=== PATIENT | female | born 1960 | race Caucasian/White ===

== ENCOUNTER 2024-05-01 05:47 | Observation (INO) ==
--- NOTE | 2024-04-04 13:03 | PAT Medication Instructions ---
Medication Instructions Date of Service April 04, 2024 Home Medications Medical Marijuana 1 applic PO HS PRN [place] 1,000 mg PO QAM Probiotic 1 cap PO DAILY Weight Management Gummy 400 mg PO DAILY cjjzsnd-oovvsnbjnivzs-odthnpdp 250 mg-250 mg-65 mg tablet (Excedrin Migraine) 2 tab PO Q6H PRN baclofen 5 mg tablet 5 mg PO BID PRN biotin 10,000 mcg capsule 10,000 mcg PO DAILY calcium 600 mg (as carbonate)-vitamin D3 10 mcg (400 unit) tablet (Calcium 600 + D(3)) 2 tab PO QAM coenzyme Q10 200 mg capsule 200 mg PO DAILY duloxetine 30 mg capsule,delayed release 30 mg PO QAM duloxetine 60 mg capsule,delayed release 60 mg PO HS garlic 1,000 mg capsule 1,000 mg PO DAILY glucosamine HCl 1,500 mg tablet 3,000 mg PO DAILY hydrochlorothiazide 12.5 mg tablet 12.5 mg PO QAM scnkvnok-kqba-pmdt 8 mg-folic 400 mcg-K 50 mcg-lutein 300 mcg tablet (Centrum Silver Women) 1 tab PO DAILY omega-3 fatty acids 500 mg PO DAILY topiramate 50 mg tablet 50 mg PO BID ASK your surgeon for instructions vvytfjd-sdexjbkvpawrt-eakfbzuw 250 mg-250 mg-65 mg tablet (Excedrin Migraine) 2 tab PO Q6H PRN STOP taking 2 weeks before surgery (or as soon as possible if surgery is within 2 weeks) [place] 1,000 mg PO QAM Weight Management Gummy 400 mg PO DAILY biotin 10,000 mcg capsule 10,000 mcg PO DAILY coenzyme Q10 200 mg capsule 200 mg PO DAILY garlic 1,000 mg capsule 1,000 mg PO DAILY glucosamine HCl 1,500 mg tablet 3,000 mg PO DAILY omega-3 fatty acids 500 mg PO DAILY DO NOT take the morning of surgery Probiotic 1 cap PO DAILY calcium 600 mg (as carbonate)-vitamin D3 10 mcg (400 unit) tablet (Calcium 600 + D(3)) 2 tab PO QAM hydrochlorothiazide 12.5 mg tablet 12.5 mg PO QAM gxweqbrv-cway-evjp 8 mg-folic 400 mcg-K 50 mcg-lutein 300 mcg tablet (Centrum Silver Women) 1 tab PO DAILY Take morning of surgery With a small sip of water, OTHERWISE NOTHING TO EAT OR DRINK AFTER MIDNIGHT: baclofen 5 mg tablet 5 mg PO BID PRN(if needed) duloxetine 30 mg capsule,delayed release 30 mg PO QAM topiramate 50 mg tablet 50 mg PO BID Take evening before surgery Medical Marijuana 1 applic PO HS PRN(if needed) baclofen 5 mg tablet 5 mg PO BID PRN(if needed) duloxetine 60 mg capsule,delayed release 60 mg PO HS topiramate 50 mg tablet 50 mg PO BID Other Notes If you have any questions please call us at [phone] or [phone] or [phone] or [phone]
--- NOTE | 2024-04-10 14:00 | Anesthesiology Consultation ---
Date of Service April 10, 2024 Assessment & Plan (1) Encounter for pre-operative examination: - Infectious disease screening: Per assessment on 04/10/24- Daughter/grandson Influenza A positive (patient had contact with them 05/03 while they were asymptomatic). Patient has remained asymptomatic since their contact. Patient advised to contact surgeon/PAT if development of infectious-related symptoms prior to surgery. - Patient acceptable risk for surgery pending surgeon-ordered PCP preop evaluation ([facility]; appt 04/15). Chart Review Chart Review: Patient seen in Pre Admission Testing Teaching & Discussion Pre-Anesthesia Teaching/Discussion Notes: Instructed NPO after midnight before surgery,except medications with 15 cc of water. Medication instructions provided according to the PAT guidelines. History Surgery Operation Date: 05/01/24 10:35 Proposed Procedures p L1-L2, L5-S1 Decompression, L2-L5 Hardware Removal, T12-S1 Fusion, with Spinal Cord Monitoring - Juvenal Rayo, Height/Weight Height: 4 ft 10 in Weight: 83.7 kg Allergies Allergy/AdvReac Type Severity Reaction Status Date / Time gabapentin AdvReac Intermediate "Out of it" Verified 04/01/24 10:27 Medications Home Medications Medication Instructions Recorded Confirmed Last Taken Medical Marijuana 1 applic PO HS PRN Pain 04/01/24 04/01/24 Unknown [place] 1,000 mg PO QAM 04/01/24 04/01/24 Unknown Probiotic 1 cap PO DAILY 04/01/24 04/01/24 Unknown Weight Management Gummy 400 mg PO DAILY 04/01/24 04/01/24 Unknown colcqwc-dazaqpnshndwz-yydjwflp 250 2 tab PO Q6H PRN Back Pain 04/01/24 04/01/24 Unknown mg-250 mg-65 mg tablet (Excedrin Migraine) baclofen 5 mg tablet 5 mg PO BID PRN Muscle Spasms 04/01/24 04/01/24 Unknown biotin 10,000 mcg capsule 10,000 mcg PO DAILY 04/01/24 04/01/24 Unknown calcium 600 mg (as 2 tab PO QAM 04/01/24 04/01/24 Unknown carbonate)-vitamin D3 10 mcg (400 unit) tablet (Calcium 600 + D(3)) coenzyme Q10 200 mg capsule 200 mg PO DAILY 04/01/24 04/01/24 Unknown duloxetine 30 mg capsule,delayed 30 mg PO QAM 04/01/24 04/01/24 Unknown release duloxetine 60 mg capsule,delayed 60 mg PO HS 04/01/24 04/01/24 Unknown release garlic 1,000 mg capsule 1,000 mg PO DAILY 04/01/24 04/01/24 Unknown glucosamine HCl 1,500 mg tablet 3,000 mg PO DAILY 04/01/24 04/01/24 Unknown hydrochlorothiazide 12.5 mg tablet 12.5 mg PO QAM 04/01/24 04/01/24 Unknown tuyknyzu-qtzv-moew 8 mg-folic 400 1 tab PO DAILY 04/01/24 04/01/24 Unknown mcg-K 50 mcg-lutein 300 mcg tablet (Centrum Silver Women) omega-3 fatty acids 500 mg PO DAILY 04/01/24 04/01/24 Unknown topiramate 50 mg tablet 50 mg PO BID 04/01/24 04/01/24 Unknown Past Medical History Medical History Anxiety Chronic low back pain Heart burn Hypertension Exercise / Class Metabolic Activity II 4-5 Yardwork/Stairs/Walk up hill (one FS: No CP, no SOB) Past Surgical History Surgical History Adverse reaction to anesthetic agent Post-op grogginess History of foot surgery left big toe History of lumbar surgery x2- Hardware Present (2017) Hx of section x2 Hx of cholecystectomy Hx of colonoscopy Hx of hysterectomy Hx of tooth extraction Upper/Lower Dentures Hx of tubal ligation Hx of wisdom tooth extraction Past Anesthesia History No Family Hx of Anesthesia Complications and Other (Post-op grogginess) History of PONV No Hx of PONV and No Hx of Motion Sickness Social History Smoking Status: Never smoker Do You Dip or Chew Tobacco: No Hx Alcohol Use: No Hx Substance Use: Yes substance use type: other Substance Use Type Other:: Medical Marijuana - flour, oils, vapes Last Used Substance: Unknown Last Used Substance Other:: Advised Review of Systems Patient denies chest pain, shortness of breath, dyspnea on exertion, fever, chills, cough, wheezing, palpitations. Physical Exam Vital Signs BP 128/85 P 76 TEMP 98.3 SP02 95%RA RESP 18 Physical Full cervical extension range of motion. Full TMJ range of motion. TMD > 3.5 finger breaths Mallampati Score I Dentition: upper/lower full dentures Lungs: clear throughout to auscultation Cardiac: regular rate and rhythm, no murmurs noted Spine: normal Carotid arteries: negative bruit Extremities: no LE edema Lab Results Anesthesia Preop Results Results Anesthesia Widget: WBC 9.42 K/ul (4.8-10.8) 04/10/24 Hgb 13.8 g/dl (12.0-16.0) 04/10/24 Hct 41.3 % (37.0-47.0) 04/10/24 Plt 439 K/uL (130-400) H 04/10/24 Na 136 mmol/L (136-145) 04/10/24 K 3.7 mmol/L (3.5-5.1) 04/10/24 Cl 101 mmol/L (98-107) 04/10/24 CO2 25 mmol/L (21-32) 04/10/24 BUN 12 mg/dl (6-23) 04/10/24 Creat 0.78 mg/dl (0.6-1.2) 04/10/24 Glucose Level 101 mg/dl (70-99(Fasting)) H 04/10/24 PT 10.3 Seconds (9.0-12.0) 04/10/24 PTT 29 Seconds (21-31) 04/10/24 INR 0.9 (0.9-1.1) 04/10/24 Urine Color Yellow 04/10/24 Urine Appearance Clear (Clear) 04/10/24 Urine pH 6.0 (4.5-7.5) 04/10/24 Urine Specific [place] 1.011 (1.000-1.030) 04/10/24 Urine Protein Negative (Negative) 04/10/24 Urine Glucose (UA) Negative (Negative) 04/10/24 Urine Ketones Negative (Negative) 04/10/24 Urine Blood Negative (Negative) 04/10/24 Urine Nitrite Negative (Negative) 04/10/24 Urine Bilirubin Negative (Negative) 04/10/24 Urine Urobilinogen Negative (Negative) 04/10/24 Urine Leukocyte Esterase Negative (Negative) 04/10/24 Blood Type B Positive 04/10/24 Antibody Screen NEGATIVE 04/10/24 Testing Electrocardiogram Date: 04/10/24 NSR at 74bpm. DAVIDSON. NS TWA. Chest X-Ray Date: 04/10/24 FINDINGS: Heart size and pulmonary vasculature are normal. No effusion or consolidation. IMPRESSION: No acute findings.
[2024-05-01] MEDS: ACETAMINOPHEN 500 MG TAB PO SCH (06:39)
[2024-05-01] MEDS: LR 15ML/HR IV SCH (06:39)
[2024-05-01] MEDS: CeleBREX 200 MG CAP PO SCH (06:39)
[2024-05-01] MEDS: LR 60ML/HR IV SCH (06:39)
[2024-05-01] MEDS ORDERED: PROMETHAZINE HCL 6.25 MG in SODIUM CHLORIDE 0.9% 50 ML IV PRN (06:49)
[2024-05-01] MEDS ORDERED: HYDROmorphone INJ 1 MG/ML SYRINGE IV PRN (06:49)
[2024-05-01] MEDS ORDERED: ONDANSETRON INJ 2 MG/ML 2 ML VIAL IV PRN (06:49)
[2024-05-01] MEDS ORDERED: LABETALOL HCL IV 5 MG/ML 20ML IV PRN (06:49)
[2024-05-01] MEDS ORDERED: ATROPINE SULFATE 0.1 MG/ML 10ML SYR IV PRN (06:49)
[2024-05-01] MEDS ORDERED: ONDANSETRON INJ 2 MG/ML 2 ML VIAL ONE (07:12)
[2024-05-01] MEDS ORDERED: ROCURONIUM BROMIDE 10 MG/ML 5 ML VIAL IV ONE ×2 (07:12→10:31)
[2024-05-01] MEDS ORDERED: MIDAZOLAM HCL 1 MG/ML 2ML VIAL ONE (07:12)
[2024-05-01] MEDS ORDERED: fentaNYL citrate PF 100 MCG/2 ML VIAL ONE ×2 (07:12→08:41)
[2024-05-01] MEDS ORDERED: DEXAMETHASONE SOD INJ 4 MG/ML VIAL ONE (07:12)
[2024-05-01] MEDS ORDERED: PROPOFOL IV EMULSION 10 MG/ML 20 ML VIAL IV ONE (07:12)
[2024-05-01] MEDS ORDERED: LIDOCAINE 2% 2 ML VIAL/AMP(20MG/ML) INFIL ONE (07:14)
--- NOTE | 2024-05-01 07:45 | History & Physical Bridge Note ---
Date of Service May 01, 2024 History & Physical Bridge Note I have examined the patient, reviewed the History & Physical and in the interval since the performance of the History & Physical I have noted the following changes of clinical significance: no changes noted
--- NOTE | 2024-05-01 07:47 | History & Physical Report ---
Date of Service May 01, 2024 Assessment & Plan (1) Multilevel lumbosacral spondylosis with radiculopathy: Plan: Decompression L1-L2, L5-S1 hardware removal L2-L5 fusion T12-S1 History of Present Illness Chief Complaint: Back and leg pain Primary Care Provider: Shayne Abdi DO This is a 63-year-old female presents chronic persistent back and leg pain after failing course of nonoperative care is here for surgical invention. Allergies Allergy/AdvReac Type Severity Reaction Status Date / Time gabapentin AdvReac Intermediate "Out of it" Verified 05/01/24 06:17 Home Medications Medication Instructions Recorded Confirmed Type Medical Marijuana 1 applic PO HS PRN Pain 04/01/24 05/01/24 History [place] 1,000 mg PO QAM 04/01/24 05/01/24 History Probiotic 1 cap PO DAILY 04/01/24 05/01/24 History Weight Management Gummy 400 mg PO DAILY 04/01/24 05/01/24 History lmzsoig-zbmgqqsgrnarh-qkorlmhc 250 2 tab PO Q6H PRN Back Pain 04/01/24 05/01/24 History mg-250 mg-65 mg tablet (Excedrin Migraine) baclofen 5 mg tablet 5 mg PO BID PRN Muscle Spasms 04/01/24 05/01/24 History biotin 10,000 mcg capsule 10,000 mcg PO DAILY 04/01/24 05/01/24 History calcium 600 mg (as 2 tab PO QAM 04/01/24 05/01/24 History carbonate)-vitamin D3 10 mcg (400 unit) tablet (Calcium 600 + D(3)) coenzyme Q10 200 mg capsule 200 mg PO DAILY 04/01/24 05/01/24 History duloxetine 30 mg capsule,delayed 30 mg PO QAM 04/01/24 05/01/24 History release duloxetine 60 mg capsule,delayed 60 mg PO HS 04/01/24 05/01/24 History release garlic 1,000 mg capsule 1,000 mg PO DAILY 04/01/24 05/01/24 History glucosamine HCl 1,500 mg tablet 3,000 mg PO DAILY 04/01/24 05/01/24 History hydrochlorothiazide 12.5 mg tablet 12.5 mg PO QAM 04/01/24 05/01/24 History austmfis-nmvo-zspt 8 mg-folic 400 1 tab PO DAILY 04/01/24 05/01/24 History mcg-K 50 mcg-lutein 300 mcg tablet (Centrum Silver Women) omega-3 fatty acids 500 mg PO DAILY 04/01/24 05/01/24 History topiramate 50 mg tablet 50 mg PO BID 04/01/24 05/01/24 History Past Med/Surg History Problem List (Updated 05/01/24 @ 07:47 by Juvenal Rayo DO) Multilevel lumbosacral spondylosis with radiculopathy Encounter for pre-operative examination Medical History Anxiety Chronic low back pain Heart burn Hypertension Surgical History Adverse reaction to anesthetic agent Post-op grogginess History of foot surgery left big toe History of lumbar surgery x2- Hardware Present (2017) Hx of section x2 Hx of cholecystectomy Hx of colonoscopy Hx of hysterectomy Hx of tooth extraction Upper/Lower Dentures Hx of tubal ligation Hx of wisdom tooth extraction Social History Smoking Status: Never smoker Second Hand Exposure: No; Do You Dip or Chew Tobacco: No; Tobacco Cessation Education Requested by Patient: No Hx Alcohol Use: No Hx Substance Use: Yes Last Used Substance: Unknown Last Used Substance Other:: Advised Substance Use Type Other:: Medical Marijuana - flour, oils, vapes Preferred Language: [place] Communication Ability: Effective Bead Picker Required: No Beliefs That Will Affect Care: None Current Living Situation: Alone Other Information That Helps Us Care for You: No Feels Safe at Home: Yes Safety Concerns: Feels Safe At This Time Assistive Devices: Denture - Upper, Denture - Lower and Glasses Physical Exam Physical Exam: Patient is alert and oriented heart regular rhythm Lungs clear Results & Data Results & Data Vital Signs (Past 12 Hours) Vital Signs Temp Pulse Resp BP Pulse Ox O2 Del Method 05/01/24 06:12 36.3 C L 87 20 145/83 H 95 Room Air
[2024-05-01] MEDS: ceFAZolin 2000MG 2,000 MG/15 ML SYR IV SCH ×2 (08:00→15:41)
[2024-05-01] MEDS ORDERED: KETAMINE HCL 10MG/ML SYR ONE (08:04)
[2024-05-01] MEDS: BUPIVACAINE/EPINEPHRINE 0.25% 1:200,000 30 ML VIAL ONE (08:57)
[2024-05-01] MEDS: ceFAZolin 330 MG/ML 1 GM VIAL ONE (08:58)
[2024-05-01] MEDS ORDERED: ePHEDrine sulfate 50 MG/ML AMP ONE (09:30)
[2024-05-01] MEDS ORDERED: PHENYLEPHRINE 100MCG/ML 5ML SYR ONE (09:55)
[2024-05-01] MEDS ORDERED: GLYCOPYRROLATE 0.2 MG/ML VIAL ONE (09:55)
[2024-05-01] MEDS ORDERED: SUGAMMADEX SODIUM 200 MG/2 ML VIAL IV ONE (11:05)
[2024-05-01] MEDS ORDERED: HYDROmorphone INJ 2 MG/ML SYR/VIAL ONE (11:08)
--- NOTE | 2024-05-01 11:17 | Fluoroscopy Report ---
FL lumbar spine 2-3V CLINICAL HISTORY: L1-L2 L5-S1 DECOMPRESSION L2-L5 HW REMOVAL T12-S1 FUSION COMPARISON STUDY: None FLUOROSCOPY TIME: 32 seconds FLUOROSCOPY IMAGES: 4 EXPOSURE DOSE: 23 mGy FINDINGS: Fluoroscopy was provided for lumbar surgery. IMPRESSION: Intraoperative fluoroscopy. ACT 112: Negative or not required by law. Electronically signed by: Wade Hawkins M.D. 05/01/2024 11:15 AM
--- NOTE | 2024-05-01 11:18 | Operative Report ---
Post Operative Report Pre & Post Diagnosis Operation Date: 05/01/24 07:45 Pre-Op Diagnosis: #1 multilevel lumbosacral spondylosis with radiculopathy #2 lumbar spinal stenosis Post-Op Diagnosis: Same I identified the patient and participated in the time-out.: Yes Procedure Operation Date: 05/01/24 07:45 Actual Procedures #1 removal of posterior segmental instrumentation L2-L5 #3 lumbar decompression with bilateral medial facetectomies and foraminotomies T12-L1, L1-L2 and L5-S1. #4 posterior spinal fusion T12-S1. #5 placement posterior instrumentation T12- S1. #6 interbody fusion L1-L2 L5-S1. #7 placement of Spira 9 x 26 mm at L1-L2 and 12 x 26 mm x 2 at L5-S1. #8 placement locally harvested morselized autograft posterior gutters. #9 placement is collagen sponge, with Koros and locally harvested morselized autograft posterior gutters. #10 application of versa wrap over the exposed dura. Surgeon Juvenal Rayo, DO Dining Room Manager Meredith Michael Estimated Blood Loss 500 Findings See Below Patient is 4 foot 10 weighing over 82 kg with a BMI in excess of 38. Patient's body was did contribute to significant technical difficulty with positioning exposure the procedure itself adding at least 50% increased operative time. Specimens None Indications This is a 63-year-old female that presents publish diagnosis of failing course of nonoperative care is here for surgical invention. Le presents Description of Procedure Patient was met with identified informed consent obtained. Patient was then taken to the operative suite underwent intubation placed in a prone position on the Tony table on top of the Jin frame. All bony promises well-padded eyes inspected to ensure no external pressure placed upon the. This point the lumbar spine was prepped and draped in normal sterile fashion. Sharp dissection with the assistance of Bovie cautery from down to and exposing the lamina transverse processes of T12-L1 and the instrumentation from L2-L5 including the remaining lamina of L5 and sacral ala bilaterally. Then proceeded move the hardware from L2-L5 bilaterally. I explored the fusion mass noting to be mature and intact. Then performed a complete laminectomy of L5 including bilateral medial facetectomies and foraminotomies addressing severe spinal stenosis and foraminal disease. Informed complete laminectomy of L1 including bilateral medial facetectomies and foraminotomies and partial laminectomy of T12 with bilateral medial facetectomies and foraminotomies addressing all neural compression. Screws were then placed in T12 L1-L2-L3 5 S1 levels. Appropriate sized rods were then cut contoured and placed. By way of transforaminal approach on the right and L5-S1 a discectomy was performed endplates guarded to subcortical being bone and a 12 x 26 mm Spira cage filled with Oxyzyme bone graft tapped position. Then proceeded to the left transforaminal region at L5-S1. Again discectomy performed. Endplates guarded to subcortical bleeding bone and a second 12 x 26 mm Spira cage filled with os designed tapped in position. Then proceeded to L1-L2 and by way of transfer approach on the right a complete discectomy was performed endplates corrected to subcortical bleeding bone and a 9 x 26 mm Spira cage filled with os designed tapped in position. The rods were then compressed locked in final position bilaterally. The transverse processes of T12 L1-L2 L5 and sacral ala burred to subcortical bleeding bone. Infuse collagen sponge combined with Koros and local autograft placed in posterior gutters. Versa wrap placed over exposed dura. 15 round ALECIA drain inserted. The incision was then closed with 1 Vicryl the fascia 2-0 Vicryl subcutaneously and 4 Monocryl for final skin closure. Steri-Strips sterile dressing placed. Patient waken taken to PACU in stable condition. Please note spinal cord monitoring was utilized at procedure no changes noted. Meredith Michael was present at the entire surgery and all the patient positioning complex portion of the surgery and final skin closure. I attest to the content of the Intraoperative Record and any orders documented therein. Any exceptions are noted below.
--- NOTE | 2024-05-01 12:36 | Anesthesiology Progress Note ---
Date of Service May 01, 2024 Anesthesia Post Procedure Vital Signs Vital Signs: Temp Pulse Pulse Resp BP Pulse Ox O2 Del Method 05/01/24 12:30 105 H 12 128/71 94 Room Air 05/01/24 12:20 36.4 C L 105 H 12 146/73 H 96 Room Air 05/01/24 12:10 104 H 16 125/74 93 Room Air 05/01/24 12:00 105 H 13 115/70 97 Oxymask 05/01/24 11:50 103 H 16 132/75 100 Oxymask 05/01/24 11:40 104 H 15 141/90 H 100 Oxymask 05/01/24 11:32 36.1 C L 104 H 18 149/82 H 99 Oxymask 05/01/24 06:12 36.3 C L 87 20 145/83 H 95 Room Air O2 Flow Rate 05/01/24 12:30 05/01/24 12:20 05/01/24 12:10 05/01/24 12:00 2 05/01/24 11:50 2 05/01/24 11:40 4 05/01/24 11:32 4 05/01/24 06:12 Pain Intensity Left Back: Pain Intensity: 3 Transfer of Care Handoff Completed per policy Notes Mental Status: alert / awake / arousable Patient Amnestic to Procedure: Yes Nausea / Vomiting: adequately controlled Pain: adequately controlled Airway Patency, RR, SpO2: stable & adequate BP & HR: stable & adequate Hydration State: stable & adequate Anesthetic Complications: no major complications apparent
[2024-05-01] MEDS ORDERED: traMADol HCL 50 MG TABLET PO PRN (12:41)
[2024-05-01] MEDS ORDERED: FAMOTIDINE 20 MG TAB PO PRN (12:41)
[2024-05-01] MEDS ORDERED: MEDICAL MARIJUANA PO PRN (12:41)
[2024-05-01] MEDS ORDERED: LORazepam 2 MG/1 ML VIAL IV PRN (12:41)
[2024-05-01] MEDS ORDERED: LORazepam 0.5 MG TAB PO PRN (12:41)
[2024-05-01] MEDS ORDERED: PROMETHAZINE 12.5 MG/50.5 ML BAG IV PRN (12:41)
[2024-05-01] MEDS ORDERED: ACETAMINOPHEN 1,000 MG/100 ML VIAL IV PRN (12:41)
[2024-05-01] MEDS ORDERED: BACLOFEN 10 MG TAB PO PRN (12:41)
[2024-05-01] MEDS ORDERED: DO NOT ADMINISTER FLU VACCINE PRN (12:41)
[2024-05-01] MEDS ORDERED: SOD PHOSPHATE/SOD BIPHOSPHATE ENEMA 132 ML BTL PR PRN (12:41)
[2024-05-01] MEDS ORDERED: METOCLOPRAMIDE HCL INJ 5 MG/ML 2 ML VIAL IV PRN (12:41)
[2024-05-01] MEDS ORDERED: ALUMINUM/MAGNESIUM SUSP 30 ML UDC PO PRN (12:41)
[2024-05-01] MEDS ORDERED: DO NOT ADMINISTER PNEUMOCOCCAL VACCINE PRN (12:41)
[2024-05-01] MEDS ORDERED: hydrOXYzine HCl 25 MG TAB PO PRN (12:41)
[2024-05-01] MEDS ORDERED: NALOXONE HCL 0.4 MG/1 ML VIAL/CARP IV PRN (12:41)
[2024-05-01] MEDS: HYDROmorphone INJ 0.5 MG/0.5 ML SYR IV PRN (12:58)
--- NOTE | 2024-05-01 13:48 | Consultation ---
Date of Consultation May 01, 2024 Assessment & Plan (1) S/P spinal surgery: (2) Multilevel lumbosacral spondylosis with radiculopathy: Post op day# 0 S/P removal instrumentation L2-L5, decompression and fusion T12- S1 by Dr Perri MCKEON# 500ml Pain management per ortho Wound management per ortho PT/OT as appropriate DVT prophylaxis per ortho Incentive spirometry Monitor H&H for acute blood loss anemia; Hgb: 13.8 (3) Sinus tachycardia: Sinus tachycardia on EKG Denies CP, SOB, dizziness. Denies urinary symptoms, cough, rhinorrhea. BP 114/82, P: 114. Pulse ox: 94% on RA, R: 18. Patient appears mildly dry on exam. Low suspicion for infectious process or PE at this time IVF TSH, CBC, BMP in am Monitor, If develops infectious symptoms or no improvement may need to consider further workup (4) Hypertension: Stable Hold home HCTZ for now (5) Anxiety: (6) Chronic low back pain: Continue home duloxetine DVT Prophylaxis SCDs Disposition per primary service Follows with Dr Shayne Abdi at [facility] for routine care Pt was seen and care coordinated with Dr Segura. See addendum Thank you for this consultation. We will follow the patient with you during their hospital stay. You can reach a member of the [facility] Hospitalist Team 26/09 via [facility] Supervising Physician Co-Signing Physician Notes Patient was seen and examined at bedside as a medical consult status post spinal surgery. Patient reports some improvement in her BLE radicular signs and symptoms after the surgery. Patient reports operative site pain fairly under control. Patient reports she had multiple stressors going at home and was doing multiple things before this elective surgery and has not been eating and drinking much prior to arrival. Patient reports having some nausea yesterday but denies any vomiting or diarrhea or flulike illness in the recent past. Patient is tachycardic at bedside exam, will continue with IV fluid, encourage p.o. intake as tolerated. Likely dehydration, oral mucosa dry on exam. Examination findings and A/P as above. I have seen and examined the patient and have discussed the case with the provider above. I agree with the assessment and plan as stated. Time spent: 15 min History of Present Illness Requesting Physician: Dr Rayo Reason for Consultation: Post op medical management Attending Physician: Juvenal Rayo, DO History of Present Illness Patient is 63 year old female with PMH HTN, back pain, insomnia, medical marijuana use seen in medical consultation s/p removal instrumentation L2-L5, decompression and fusion T12-S1 today by Dr Rayo. Post op patient reports pain is currently controlled. Patient reports is under a lot of stress with family situation and reports was stressed this morning on her commute to the hospital with the dense fog. She states has been told by PCP's office in past her heart rate was elevated when she was anxious. Patient reports took phentermine for 2 months for weight management. Denies palpitations, SOB, CP. Last BM yesterday. Reports chronic constipation and uses Miralax a couple of times a week. Has Wiggins catheter in place. Denies fever/chills, diaphoresis, N/V/D, ALVAREZ, dizziness, syncope, vision changes, neck pain, CP, SOB, cough, sore throat, rhinorrhea, abdominal pain, paresthesias, weakness, extremity edema, rashes, urinary symptoms. Allergies Allergy/AdvReac Type Severity Reaction Status Date / Time gabapentin AdvReac Intermediate "Out of it" Verified 05/01/24 06:17 Home Medications Medication Instructions Recorded Confirmed Type Medical Marijuana 1 applic PO HS PRN Pain 04/01/24 05/01/24 History [place] 1,000 mg PO QAM 04/01/24 05/01/24 History Probiotic 1 cap PO DAILY 04/01/24 05/01/24 History Weight Management Gummy 400 mg PO DAILY 04/01/24 05/01/24 History wazqwaz-rbzfyvfezzybo-zhbekvro 250 2 tab PO Q6H PRN Back Pain 04/01/24 05/01/24 History mg-250 mg-65 mg tablet (Excedrin Migraine) baclofen 5 mg tablet 5 mg PO BID PRN Muscle Spasms 04/01/24 05/01/24 History biotin 10,000 mcg capsule 10,000 mcg PO DAILY 04/01/24 05/01/24 History calcium 600 mg (as 2 tab PO QAM 04/01/24 05/01/24 History carbonate)-vitamin D3 10 mcg (400 unit) tablet (Calcium 600 + D(3)) coenzyme Q10 200 mg capsule 200 mg PO DAILY 04/01/24 05/01/24 History duloxetine 30 mg capsule,delayed 30 mg PO QAM 04/01/24 05/01/24 History release duloxetine 60 mg capsule,delayed 60 mg PO HS 04/01/24 05/01/24 History release garlic 1,000 mg capsule 1,000 mg PO DAILY 04/01/24 05/01/24 History glucosamine HCl 1,500 mg tablet 3,000 mg PO DAILY 04/01/24 05/01/24 History hydrochlorothiazide 12.5 mg tablet 12.5 mg PO QAM 04/01/24 05/01/24 History jqvzhxgm-hvwn-xwxx 8 mg-folic 400 1 tab PO DAILY 04/01/24 05/01/24 History mcg-K 50 mcg-lutein 300 mcg tablet (Centrum Silver Women) omega-3 fatty acids 500 mg PO DAILY 04/01/24 05/01/24 History topiramate 50 mg tablet 50 mg PO BID 04/01/24 05/01/24 History Patient History Medical History Chronic low back pain Heart burn Anxiety Hypertension Surgical History Hx of tooth extraction Upper/Lower Dentures Adverse reaction to anesthetic agent Post-op grogginess Hx of wisdom tooth extraction History of foot surgery left big toe Hx of hysterectomy Hx of cholecystectomy Hx of tubal ligation Hx of section x2 Hx of colonoscopy History of lumbar surgery x2- Hardware Present (2017) Social History (Updated 05/01/24 @ 14:15 by Simin Kaur PA-C) Smoking Status: Never smoker Second Hand Exposure: No; Do You Dip or Chew Tobacco: No; Tobacco Cessation Education Requested by Patient: No Hx Alcohol Use: Yes (1 drink a night. Last drink was 2 weeks ago) Hx Substance Use: No Preferred Language: Lao Communication Ability: Effective Disability Program Navigator Required: No Beliefs That Will Affect Care: None Current Living Situation: Spouse Other Information That Helps Us Care for You: No Feels Safe at Home: Yes Safety Concerns: Feels Safe At This Time Assistive Devices: Denture - Upper, Denture - Lower and Glasses Review of Systems Review of Systems: All systems reviewed & are unremarkable except as noted in HPI & below Physical Exam Physical Exam: General: no distress, WDWN Head: normocephalic, atraumatic Eyes: conjunctiva non-injected, anicteric ENT: normal inspection external ears, nose, mucous membranes dry Neck: supple, trachea midline Lungs: clear, no respiratory distress, no wheezing/rhonchi/rales CV: regular rhythm, rate 116, no murmur noted, no pretibial edema Abd: normal BS, soft, non-tender Back: ALECIA drain with serosanguineous drainage Ext: no cyanosis, no calf tenderness Neuro: A&O x 3, no focal deficits noted, normal affect Skin: warm, dry Results & Data Vital Signs (Past 12 Hours) Vital Signs Temp Pulse Pulse Resp BP Pulse Ox O2 Del Method 05/01/24 13:14 36.5 C 114 H 18 118/79 94 Room Air 05/01/24 13:00 36.4 C L 96 H 18 115/74 92 Nasal Cannula 05/01/24 12:48 36.5 C 105 H 16 115/78 95 Room Air 05/01/24 12:43 36.5 C 113 H 18 114/80 2 L Nasal Cannula 05/01/24 12:30 105 H 12 128/71 94 Room Air 05/01/24 12:20 36.4 C L 105 H 12 146/73 H 96 Room Air 05/01/24 12:10 104 H 16 125/74 93 Room Air 05/01/24 12:00 105 H 13 115/70 97 Oxymask 05/01/24 11:50 103 H 16 132/75 100 Oxymask 05/01/24 11:40 104 H 15 141/90 H 100 Oxymask 05/01/24 11:32 36.1 C L 104 H 18 149/82 H 99 Oxymask 05/01/24 06:12 36.3 C L 87 20 145/83 H 95 Room Air O2 Flow Rate 05/01/24 13:14 05/01/24 13:00 2 05/01/24 12:48 05/01/24 12:43 2 05/01/24 12:30 05/01/24 12:20 05/01/24 12:10 05/01/24 12:00 2 05/01/24 11:50 2 05/01/24 11:40 4 05/01/24 11:32 4 05/01/24 06:12
[2024-05-01] MEDS: FLOSEAL HEMOSTATIC MATRIX 10ML TOP ONE (14:00)
[2024-05-01] MEDS: SODIUM CHLORIDE 0.9% 1,000 ML IV SCH (14:46)
[2024-05-01] MEDS: ONDANSETRON 4 MG OD TAB PO PRN (15:46)
[2024-05-01] MEDS: TOPIRAMATE 50 MG TAB PO SCH (21:58)
[2024-05-01] MEDS: DOCUSATE SODIUM/SENNA 50/8.6MG TAB PO SCH (21:58)
[2024-05-01] MEDS: ACETAMINOPHEN 500 MG TAB PO PRN (22:09)
[2024-05-01] MEDS: DULoxetine HCL 60 MG CAP PO SCH (22:31)
[2024-05-02] MEDS: HYDROmorphone INJ 1 MG/ML SYRINGE IV PRN (00:57)
[2024-05-02] MEDS: POLYETHYLENE (MIRALAX) 17 GM PACK PO SCH (05:49)
[2024-05-02 07:08] LABS: Basophils # (auto) 0.04 K/uL (0.00-0.20); Basophils % (auto) 0.3 %; Hematocrit (blood only) 31.1 % (37.0-47.0); Immature Granulocytes # (auto) 0.04 K/uL (0.01-0.20); Immature Granulocytes % (auto) 0.3 %; Lymphocytes # (auto) 1.99 K/uL (1.20-3.40); Lymphocytes % (auto) 14.4 %; Mean Corpuscular Hemoglobin 28.5 pg (25.0-34.0); Mean Corpuscular Hgb Conc 32.2 g/dL (32.0-36.0); Mean Corpuscular Volume 88.6 fL (80.0-100.0); Mean Platelet Volume 9.7 fL (9.4-12.4); Monocytes # (auto) 1.13 K/uL (0.11-0.59); Monocytes % (auto) 8.2 %; Neutrophils # (auto) 10.61 K/uL (1.40-6.50); Neutrophils % (auto) 76.8 %; Platelet Count 351 K/uL (130-400); RDW Coefficient of Variation 14.4 % (11.5-14.5); RDW Standard Deviation 46.5 fL (36.4-46.3); Red Blood Count 3.51 M/uL (4.20-5.40); White Blood Count 13.81 K/ul (4.8-10.8)
[2024-05-02 07:20] LABS: BUN Creatinine Ratio 14.1 (10-20); Calcium 7.8 mg/dl (8.6-10.3); Creatinine Clr Calc Pharmacy 75.6 ml/min; Potassium 3.9 mmol/L (3.5-5.1)
[2024-05-02 07:35] LABS: Thyroid Stimulating Hormone 1.15 uIu/ml (0.300-4.500)
[2024-05-02] MEDS: oxyCODONE HCL IR 5 MG TAB (IMMEDIATE RELEASE) PO PRN (07:57)
[2024-05-02] MEDS: dexAMETHasone 6 MG in SYRINGE 0 ML IV SCH (07:57)
[2024-05-02] MEDS: MULTIVITAMIN TAB PO SCH (07:57)
[2024-05-02] MEDS: CALCIUM 600MG + VIT D 400 IU TAB PO SCH (07:57)
[2024-05-02] MEDS: DULoxetine HCL 30 MG CAP PO SCH (07:57)
--- NOTE | 2024-05-02 08:11 | Hospitalist Progress Note ---
Date of Service May 02, 2024 Assessment & Plan (1) S/P spinal surgery: (2) Multilevel lumbosacral spondylosis with radiculopathy: Plan: Post op day# 1 S/P removal instrumentation L2-L5, decompression and fusion T12- S1 by Dr Rayo Per ortho for pain control, wound care, anticoagulation and activities Continue incentive spirometry, PT/OT when appropriate Acute blood loss anemia Monitor H&H (hgb 10 today from 13.8, EBL 500ml), asymptomatic Monitor daily CBC (3) Sinus tachycardia: Plan: Sinus tachycardia on EKG Asymptomatic Low suspicion for infectious process or PE at this time (4) Hypertension: Plan: Normotensive. Continue to hold HCTZ for now (5) Anxiety: (6) Chronic low back pain: Plan: Continue home duloxetine DVT Prophylaxis: SCDs PCP: [place] ([facility]) Dispo: admitted on med/surg. Discharge per primary service I spent a total of 35 minutes coordinating, documenting, and providing care for this patient excluding time spent in the performance of separately billed services or time spent by another provider/QHP. Thank you for this consultation. We will follow the patient with you during their hospital stay. You can reach a [facility] via [employer] Admission and Anticipated Discharge Date Admission Date: May 01, 2024 Subjective Seen and examined in 355 bed 1. Sitting in bedside chair without any acute complaints overnight. Surgical site pain is controlled. Tolerating diet without issue. Wiggins catheter in place. Starting to pass flatus but issues with constipation at baseline. No chest pain, shortness of breath, nausea vomiting or abdominal pain. Review of Systems Review of Systems: At least ten systems reviewed and negative except as noted in the HPI. Physical Exam Physical Exam: Gen: WD/WN, NAD, sitting in bedside chair, A&Ox3, + anxious HEENT: Normocephalic, atraumatic, mucous membranes moist Lung: Clear to Auscultation bilaterally Heart: Regular rate, regular rhythm Abdomen: Soft, NT, ND +BS x 4 MSK: Spinal dressing c/d/i, ALECIA drain visualized Extremities: no edema Skin: Warm, no rash Results & Data Results & Data Vital Signs (Past 12 Hours) Vital Signs Temp Pulse Resp BP Pulse Ox O2 Del Method 05/02/24 07:00 36.6 C 103 H 18 133/81 98 Room Air 05/02/24 03:40 36.3 C L 83 16 111/71 94 Room Air 05/01/24 23:17 36.7 C 88 18 113/73 96 Room Air Laboratory Results Short CBC 05/02/24 Range/Units 06:32 WBC 13.81 H (4.8-10.8) K/ul Hgb 10.0 L (12.0-16.0) g/dl Hct 31.1 L (37.0-47.0) % Plt Count 351 (130-400) K/uL BMP 05/02/24 06:32 Sodium 137 Potassium 3.9 Chloride 105 Carbon Dioxide 28 BUN 10 Creatinine 0.71 Glucose 145 H Calcium 7.8 L
[2024-05-02] MEDS ORDERED: GLUCOSAMINE HCL 1500 MG PO SCH (09:00)
[2024-05-02] MEDS ORDERED: NON-FORMULARY MEDICATION (Coenzyme Q10 200 mg Capsule) PO SCH (09:00)
--- NOTE | 2024-05-02 10:03 | Orthopedic Progress Note ---
Date of Service May 02, 2024 Assessment & Plan (1) Multilevel lumbosacral spondylosis with radiculopathy: Plan: At this time we will continue physical therapy monitor her ALECIA operatively discharge home next few days. Admission and Anticipated Discharge Date Admission Date: May 01, 2024 Subjective Back pain is controlled leg pain improved Physical Exam Physical Exam: Patient is in the chair at the bedside. She is comfortable. Is constricted testing. Results & Data Vital Signs (Past 12 Hours) Vital Signs Temp Pulse Resp BP Pulse Ox O2 Del Method 05/02/24 07:00 36.6 C 103 H 18 133/81 98 Room Air 05/02/24 03:40 36.3 C L 83 16 111/71 94 Room Air 05/01/24 23:17 36.7 C 88 18 113/73 96 Room Air Queries Orthopedic Spine Acute Posthemorrhagic Anemia: Yes Obesity: Yes
[2024-05-02] MEDS: diphenhydrAMINE Capsule 25 MG CAP PO PRN (18:51)
--- NOTE | 2024-05-02 21:13 | Electrocardiogram Report ---
Test Reason : Blood Pressure : */* mmHG Vent. Rate : 110 BPM Atrial Rate : 110 BPM P-R Int : 144 ms QRS Dur : 84 ms QT Int : 362 ms P-R-T Axes : 62 104 25 degrees QTcB Int : 489 ms Sinus tachycardia Possible Left atrial enlargement Possible Right ventricular hypertrophy Nonspecific ST abnormality T wave abnormality, consider anterior ischemia Prolonged QT Abnormal ECG When compared with ECG of 10-Apr-2024 14:43, Vent. rate has increased by 36 bpm Nonspecific T wave abnormality now evident in Inferior leads QT has lengthened Confirmed by Cholo Hernandez ([id number]) on 05/02/2024 9:12:54 PM Referred By: Juvenal Rayo Confirmed By: Cholo Hernandez
[2024-05-03 07:53] LABS: Hematocrit (blood only) 26.4 % (37.0-47.0); Hemoglobin 8.8 g/dl (12.0-16.0); Mean Corpuscular Hemoglobin 29.3 pg (25.0-34.0); Mean Corpuscular Hgb Conc 33.3 g/dL (32.0-36.0); Mean Platelet Volume 9.8 fL (9.4-12.4); Platelet Count 287 K/uL (130-400); RDW Coefficient of Variation 14.7 % (11.5-14.5); RDW Standard Deviation 47.3 fL (36.4-46.3); White Blood Count 13.63 K/ul (4.8-10.8)
--- NOTE | 2024-05-03 08:02 | Hospitalist Progress Note ---
Date of Service May 03, 2024 Assessment & Plan (1) S/P spinal surgery: (2) Multilevel lumbosacral spondylosis with radiculopathy: Plan: Post op day#2 S/P removal instrumentation L2-L5, decompression and fusion T12-S1 by Dr Rayo Per ortho for pain control, wound care, anticoagulation and activities Continue incentive spirometry, PT/OT when appropriate Acute blood loss anemia Monitor H&H hgb 8.8 today (from hgb 10 yesterday, pre-op hgb 13.8 pre-op) Asymptomatic, no indication for transfusion at this time Continue to monitor closely, daily CBC (3) Sinus tachycardia: Plan: Sinus tachycardia on EKG Asymptomatic Low suspicion for infectious process or PE at this time, at respiratory baseline (4) Hypertension: Plan: Normotensive. Resume hctz (5) Anxiety: (6) Chronic low back pain: Plan: Continue home duloxetine DVT Prophylaxis: SCDs PCP: [place] ([facility]) Dispo: admitted on med/surg. Discharge per primary service I spent a total of 35 minutes coordinating, documenting, and providing care for this patient excluding time spent in the performance of separately billed services or time spent by another provider/QHP. Thank you for this consultation. We will follow the patient with you during their hospital stay. You can reach a member of the [facility] Hospitalist Team 26/09 via [facility] Admission and Anticipated Discharge Date Admission Date: May 01, 2024 Subjective Seen and examined in 355 bed 1. Resting in bed comfortably, no acute complaints overnight. Surgical site pain is controlled. Tolerating diet without issue. No chest pain, shortness of breath, nausea vomiting or abdominal pain. Passing flatus but no post-op bowel movement. Review of Systems Review of Systems: At least ten systems reviewed and negative except as noted in the HPI. Physical Exam Physical Exam: Gen: WD/WN, NAD, sitting up in bed, A&Ox3 HEENT: Normocephalic, atraumatic, mucous membranes moist Lung: Clear to Auscultation bilaterally Heart: Regular rate, regular rhythm Abdomen: Soft, NT, ND +BS x 4 MSK: Spinal dressing c/d/i, ALECIA drain visualized Extremities: no edema Skin: Warm, no rash Results & Data Results & Data Vital Signs (Past 12 Hours) Vital Signs Temp Pulse Resp BP Pulse Ox O2 Del Method 05/03/24 07:17 36.8 C 92 H 18 120/78 97 Room Air 05/02/24 20:04 36.6 C 102 H 18 108/67 95 Room Air Laboratory Results Short CBC 05/03/24 Range/Units 07:18 WBC 13.63 H (4.8-10.8) K/ul Hgb 8.8 L (12.0-16.0) g/dl Hct 26.4 L (37.0-47.0) % Plt Count 287 (130-400) K/uL BMP 05/03/24 07:18 Sodium 135 L Potassium 3.6 Chloride 104 Carbon Dioxide 27 BUN 15 Creatinine 0.69 Glucose 101 H Calcium 7.6 L Diagnostic Findings Lumbar Spine X-Ray 05/01/24 07:45 FL lumbar spine 2-3V CLINICAL HISTORY: L1-L2 L5-S1 DECOMPRESSION L2-L5 HW REMOVAL T12-S1 FUSION COMPARISON STUDY: None FLUOROSCOPY TIME: 32 seconds FLUOROSCOPY IMAGES: 4 EXPOSURE DOSE: 23 mGy FINDINGS: Fluoroscopy was provided for lumbar surgery. IMPRESSION: Intraoperative fluoroscopy. ACT 112: Negative or not required by law. Electronically signed by: Wade Hawkins M.D. 05/01/2024 11:15 AM
[2024-05-03 08:10] LABS: BUN Creatinine Ratio 21.7 (10-20); Calcium 7.6 mg/dl (8.6-10.3); Creatinine Clr Calc Pharmacy 77.8 ml/min; Potassium 3.6 mmol/L (3.5-5.1)
--- NOTE | 2024-05-03 10:08 | Orthopedic Progress Note ---
Date of Service May 03, 2024 Assessment & Plan (1) Multilevel lumbosacral spondylosis with radiculopathy: Plan: At this time we will continue physical therapy monitor ALECIA output anticipate discharge home tomorrow. Admission and Anticipated Discharge Date Admission Date: May 01, 2024 Subjective Patient's back pain is controlled leg pain improved Physical Exam Physical Exam: Patient is currently in bed. He is distracted testing. Results & Data Vital Signs (Past 12 Hours) Vital Signs Temp Pulse Resp BP Pulse Ox O2 Del Method 05/03/24 07:17 36.8 C 92 H 18 120/78 97 Room Air Queries Orthopedic Spine Acute Posthemorrhagic Anemia: Yes Obesity: Yes
[2024-05-03 15:17] VITALS: O2SAT 96
[2024-05-03] MEDS: MAGNESIUM HYDROXIDE SUSP 30 ML UDC PO PRN (17:13)
[2024-05-03] MEDS: ONDANSETRON INJ 2 MG/ML 2 ML VIAL IV PRN (21:41)
[2024-05-03] MEDS: bisacodyL 10 MG SUPP PR PRN (21:42)
[2024-05-04 07:28] LABS: Hematocrit (blood only) 28.2 % (37.0-47.0); Hemoglobin 9.4 g/dl (12.0-16.0); Mean Corpuscular Hemoglobin 28.8 pg (25.0-34.0); Mean Corpuscular Hgb Conc 33.3 g/dL (32.0-36.0); Mean Corpuscular Volume 86.5 fL (80.0-100.0); Mean Platelet Volume 9.6 fL (9.4-12.4); Platelet Count 327 K/uL (130-400); RDW Coefficient of Variation 14.4 % (11.5-14.5); Red Blood Count 3.26 M/uL (4.20-5.40); White Blood Count 14.96 K/ul (4.8-10.8)
[2024-05-04 07:46] LABS: BUN Creatinine Ratio 21.7 (10-20); Calcium 7.8 mg/dl (8.6-10.3); Creatinine Clr Calc Pharmacy 77.8 ml/min; Potassium 3.6 mmol/L (3.5-5.1)
[2024-05-04 07:47] VITALS: BP 138/83; PULSE 98; RESP 18; TEMP 94.5
--- NOTE | 2024-05-04 08:20 | Hospitalist Progress Note ---
Date of Service May 04, 2024 Assessment & Plan (1) S/P spinal surgery: (2) Multilevel lumbosacral spondylosis with radiculopathy: Plan: Post op day#3 S/P removal instrumentation L2-L5, decompression and fusion T12-S1 by Dr Rayo Doing well today and ambulating Per ortho for pain control, wound care, anticoagulation and activities Continue incentive spirometry, PT/OT when appropriate Planned for discharge home today Follow up with Dr Rayo as directed Acute blood loss anemia Hgb: 9.4. Was 8.8 yesterday. Improved. (pre-op hgb 13.8 pre-op) Asymptomatic, no indication for transfusion at this time Follow up with PCP (3) Sinus tachycardia: Plan: Sinus tachycardia on EKG Asymptomatic Pulse has been in high 90's Low suspicion for infectious process or PE at this time, at respiratory baseline (4) Hypertension: Plan: Normotensive Resume home HCTZ (5) Anxiety: (6) Chronic low back pain: Plan: Continue home duloxetine DVT Prophylaxis: SCDs PCP: [place] ([facility]) Dispo: Planned for Discharge home today per primary service I spent a total of 35 minutes coordinating, documenting, and providing care for this patient excluding time spent in the performance of separately billed services or time spent by another provider/QHP. Thank you for this consultation. We will follow the patient with you during their hospital stay. You can reach a member of the [facility] via [employer] Admission and Anticipated Discharge Date Admission Date: May 01, 2024 Subjective Patient seen and examined in room 355-1. Sitting on edge of bed. Reports is doing well and pain is controlled. States no BM for days. She is currently awaiting enema. If produces BM is planned for discharge home by Dr Rayo. Denies fever/chills, diaphoresis, N/V, ALVAREZ, dizziness, CP, SOB, palpitations, cough, rhinorrhea, abdominal pain, paresthesias, weakness, extremity edema, rashes, urinary symptoms. Review of Systems Review of Systems: All systems reviewed & are unremarkable except as noted in HPI & below Physical Exam Physical Exam: General: no distress, WDWN Head: normocephalic, atraumatic Eyes: conjunctiva non-injected, anicteric ENT: normal inspection external ears, nose, mucous membranes moist Neck: supple, trachea midline, Lungs: clear, no respiratory distress, no wheezing/rhonchi/rales CV: RRR, no murmur, no pretibial edema Abd: normal BS, soft, non-tender Ext: no cyanosis, no calf tenderness; bilateral pedal pushes and pulls intact, active flexion and extension of bilateral hips, knees and ankles. sensation to light touch intact Neuro: A&O x 3, no focal deficits noted, normal affect Skin: warm, dry Results & Data Results & Data Vital Signs (Past 12 Hours) Vital Signs Temp Pulse Resp BP Pulse Ox O2 Del Method 05/04/24 07:43 34.7 C L 98 H 18 138/83 96 Room Air Laboratory Results Short CBC 05/04/24 Range/Units 07:11 WBC 14.96 H (4.8-10.8) K/ul Hgb 9.4 L (12.0-16.0) g/dl Hct 28.2 L (37.0-47.0) % Plt Count 327 (130-400) K/uL BMP 05/04/24 07:11 Sodium 135 L Potassium 3.6 Chloride 107 Carbon Dioxide 25 BUN 15 Creatinine 0.69 Glucose 99 Calcium 7.8 L
--- NOTE | 2024-05-04 08:33 | Discharge Summary ---
Date of Service May 04, 2024 Admission HPI Per Admitting Provider This is a 63-year-old female presents chronic persistent back and leg pain after failing course of nonoperative care is here for surgical invention. Principal Diagnosis Lumbar spondylosis with radiculopathy Discharge Data Allergies Allergy/AdvReac Type Severity Reaction Status Date / Time gabapentin AdvReac Intermediate "Out of it" Verified 05/01/24 06:17 Consultations 05/01/24 12:41 Consult Hospitalist Routine Procedures Performed Operation Date: 05/01/24 07:45 Actual Procedures p L1-L2, L5-S1 Decompression, T12-S1 Fusion, with Spinal Cord Monitoring(Not Applicable) - Juveanl Rayo DO s L2-L5 Hardware Removal(Not Applicable) - Juvenal Rayo DO Ordered Studies 05/01/24 07:45 [place] lumbar spine 2-3V Routine Hospital Course (1) Multilevel lumbosacral spondylosis with radiculopathy: Patient underwent multilevel lumbar depression fusion trial as well as taken orthopedic for postoperative. Post ablation progressed appropriately. Marked improvement of her leg symptoms. ALECIA drain decreasing. Good strength testing. Subsidy discharged home. Discharge orders instructions from the chart for further review. Total Time Total Time Spent Total Time Spent (In Minutes): 20 minutes Discharge Plan Discharge Items Patient Disposition: Home - Self-Care Reason For Visit: Lumbar Disc Disease, Other Spondylosis with Radicu Discharge Diagnosis: Lumbar spondylosis with radiculopathy Activity: As commented below Non-emergency contact: Primary Care Provider Call non-emergency contact if: you have any medication questions Follow-up/Referrals: Shayne Abdi DO [Primary Care Provider] - Diet: Regular Addtl Attending Provider Instructions: ACTIVITY RECOMMENDATIONS: SELF CARE INSTRUCTIONS AFTER THORACIC/LUMBAR FUSIONS 1. You may walk to your tolerance. It is good exercise for your legs and back. Expect some back and intermittent leg aches and pains. 2. You may perform "counter-top" level activities (make a sandwich, judd with a project, etc.). 3. No bending or lifting of more than 10 pounds or back twisting of any nature (roll like a log when turning in bed). 4. You may ride in a car for 20-30 minutes at a time. No driving until after your first visit with your doctor. 5. Frequent changes of position and restricting sitting to 30 minutes at a time will help limit the amount of back spasms and stiffness you may experience. 6. You may discontinue the use of ambulatory aids (cane, crutches, etc.) once your strength and confidence allow. 7. You may contamination consultant the shower and let water strike your incision when you arrive home at least once daily. Do not take a tub bath, sit in a hot tub or go into a swimming pool until after your first recheck in the office. 8. You may resume previous diet. SPECIAL CARE INSTRUCTIONS: VERY IMPORTANT TO READ AND REVIEW A. Your surgical incision has been closed with a cosmetic suture under the skin that will dissolve in about 6 weeks. In 14 days, you can use a pair of clean scissors and cut the suture that is left outside of the skin at the ends of your incision. 1. The small skin tapes can be removed 7 days after surgery if they have not fallen off by that point. 2. You may keep the wound open to air as much as possible to promote healing after post-op day number 5 unless told otherwise by your doctor. 3. If you think the wound looks like it is becoming infected (redness or worsening drainage) and/or you are experiencing fever, chill or worsening back pain and muscle spasms, contact the office so that we may evaluate you as soon as possible. B. Complications are uncommon, but please contact us if you have any signs or symptoms of: 1. wound infection (fever higher than 102.5 degrees F, redness, separation of wound, drainage, or increasing pain from the incision) 2. blood clots in legs (pain, swelling, redness and warmth in legs) 3. urinary tract infection (fever higher than 102.5 degrees F, burning upon urination or increased frequency of urination) 4. nerve problems (inability to walk on your toes or heels, numbness, loss of bowel or bladder control) 5. any other symptoms that concern you C. Please call the office at if you have any concerns or questions about your operation or recovery. D. No smoking! Smoking drastically decreases the chance of a solid fusion. E. Do not take any anti-inflammatory medications (Indocin, Advil, Motrin, Aspirin, Naprosyn, etc.) as these may inhibit the chance of a solid fusion. Tylenol is okay to take for pain. MANAGING PAIN AFTER SPINAL SURGERY 1. Narcotic medication is intended for short-term use and will be provided for surgical pain. Surgical pain usually lasts for a period of 4-6 weeks. Narcotic medication includes Percocet, Vicodin, Darvocet, Tylenol #3 or Lortab. 2. Longer-term pain is more appropriately treated with non-narcotic medication such as Tylenol ES. 3. Muscle spasm is not appropriately treated with narcotics. Muscle relaxers such as Soma, Flexeril or Skelaxin can be used along with Tylenol ES. 4. Remember that we all live with some "aches and pains". This is not unusual or uncommon after an injury or as we get older. a. Back pain is expected and may include muscle spasms for 4 to 6 weeks after surgery. The pain should gradually improve. If the pain worsens for no apparent reason, please contact the office. b. Intermittent leg pain may also be experienced and should not be concerned about unless it worsens for no apparent reason. If so, please contact the office. 5. We will provide appropriate medication within the normal guidelines of their prescribed use. We will also be very cautious and aware of potential abuse and extended duration of patients' medication needs. a. Pain medications are for your comfort and to assist with sleep and rest so that the tissue can heal. They are not provided in order to return to normal activity and should not be used through the day. To do so or worsening pain at night can result from ongoing tissue damage and development of tolerance to the prescribed medicine. 6. Please allow 2-3 days to process refills. Prescriptions will not be mailed but must be picked up at the office. FOLLOW UP VISIT: Keep your scheduled follow-up appointment. Any questions, please call the office at . Pending Studies at Discharge: No Stand-Alone Forms: [employer], Smoking Cessation Medications and DC Order Prescriptions: New tramadol 50 mg tablet 50 mg PO Q6H PRN (Reason: pain, moderate) Qty: 30 0RF oxycodone 5 mg tablet 5 mg PO Q6H PRN (Reason: pain) Qty: 30 0RF Continued garlic 1,000 mg Capsule 1,000 mg PO DAILY biotin 10,000 mcg Capsule 10,000 mcg PO DAILY [place] 3 Fish Oil Capsule 500 mg PO DAILY topiramate 50 mg Tablet 50 mg PO BID duloxetine 30 mg Capsule,Delayed Release(Dr/Ec) 30 mg PO QAM duloxetine 60 mg Capsule,Delayed Release(Dr/Ec) 60 mg PO HS coenzyme Q10 200 mg Capsule 200 mg PO DAILY calcium carbonate-vitamin D3 [Calcium 600 + D(3)] 600 mg-10 mcg (400 unit) Tablet 2 tab PO QAM hydrochlorothiazide 12.5 mg Tablet 12.5 mg PO QAM glucosamine HCl 1,500 mg Tablet 3,000 mg PO DAILY Rx Instructions: administer with a meal Centrum Silver Women 8 mg iron-400 mcg-50 mcg Tablet 1 tab PO DAILY baclofen 5 mg Tablet 5 mg PO BID PRN (Reason: Muscle Spasms) [place] 1,000 mg PO QAM Probiotic 1 cap PO DAILY Weight Management Gummy 400 mg PO DAILY Medical Marijuana 1 applic PO HS PRN (Reason: Pain) Patient Comments: "Flour, oils, and Vape" Excedrin Migraine 250-250-65 mg Tablet 2 tab PO Q6H PRN (Reason: Back Pain) Discharge Orders: Discharge Order (Routine); Ordered 05/04/24 Ordered By: Juvenal Rayo Admission Data Admit Date/Time: 05/01/24 11:22 Attending Provider: Juvenal Rayo Admit Provider: Juvenal Rayo Primary Care Provider: Shayne Abdi Other Providers: Bessy Quintero
[2024-05-04] MEDS: hydroCHLOROthiazide 25 MG TAB PO SCH (10:02)
[2024-05-04] MEDS: SOD PHOSPHATE/SOD BIPHOSPHATE ENEMA 132 ML BTL PR STA (11:45)
== END 2024-05-04 12:50 | disposition home or self-care (01) | DRG 427 ==
LOC: ASU 05:47 → INTOOBSV 11:22 → 3W 11:22